=== PATIENT | male | born 1990 | race Two or more races ===

== ENCOUNTER 2018-06-07 19:08 | Emergency (ER) | payer OTHER ==
[~2018-06-07] VITALS: Ht 157.5 cm; Wt 59.0 kg
[2018-06-07 19:35] VITALS: BP 107/68
== END 2018-06-07 21:53 | disposition home or self-care (01) ==
LOC: ER 19:08
DX: M54.2 Cervicalgia (principal); M62.838 Other muscle spasm; M54.5 Low back pain; V49.9XXA Car occupant (driver) (passenger) injured in unspecified traffic accident, initial encounter; Y93.89 Activity, other specified; Y92.488 Other paved roadways as the place of occurrence of the external cause; Y99.8 Other external cause status
CPT/HCPCS: 70450; 72040; 72100; 73090